=== PATIENT | male | born 1965 | race Caucasian/White ===

== ENCOUNTER 2021-08-09 11:58 | Outpatient (REF) | payer OTHER, SELFPAY | END 2021-08-09 11:59 | disposition home or self-care (01) | LOC: HO.WFDLDS 11:58 | PROVIDERS: Visit Provider Internal Medicine | DX: Z20.822 Contact with and (suspected) exposure to COVID-19 (principal) | CPT/HCPCS: C9803; U0003; U0005 ==

== ENCOUNTER 2025-06-05 07:49 | Outpatient (REF) | payer OTHER, SELFPAY ==
--- OUTSIDE RECORDS SUMMARY | 2016-04-07 | XMS_ITS | Encounter Summary ---
Author Organization [facility] Address [address] [place] [address] Phone Care Team Providers Care Public Health Nutritionist Name Role Phone Unavailable Primary Care Provider Unavailabl e Reason for Visit * MRI/CAT Scan - Closed Specialty Diagnoses / Procedures Referred By Contac t Referred To Contact Procedures MRI Outside Upper Extremity (No Interpretation) Eduardo Carranza Jp, MD [address] [facility] [address] [place] [address] Phone: tel: fax: mailto:[email or web address] Referral ID Status Reason Start Date Expiration Date Visits Re quested Visits Authorized [id number] Closed 07/29/2016 07/29/2017 1 1 Encounter Details Date Type Department Care Team (Late st Contact Info) Description 04/07/2016 Hospital Encounter [facility] [address] [place] [address] Eduardo Carranza Jp, MD [address] [facility] [address] [place] [address] [email or web address] Social History Tobacco Use Types Packs/Day Years [...] (No Interpretation) (04/07/2016 12:00 AM EDT) Narrative [facility] [place] [place] - 07/29/2016 12:00 PM EST This study is for PACS storage only and not for interpretation. us Eduardo Carranza MD IMG OUTSIDE IMAGING W/OUT INTER PRETATION Final Result [facility] [place] documented in this encounter Visit Diagnoses Not on filedocumented in this encounter Additional Source Comments The information contained in this document represents components of the legal health record. It is not the complete legal health record.[facility]
--- NOTE | ~2025-06-05 | XR_ITS ---
EXAMINATION: XR KNEE 3 VIEWS RIGHT HISTORY: M25.561 - Pain in right knee COMPARISON: There are no prior studies available for comparison. FINDINGS: Three views of the right knee are submitted. Osseous mineralization is normal. There is no fracture or dislocation. There is mild narrowing of the medial compartment. The soft tissues are unremarkable. There is no joint effusion. XR/XR knee RT 3V IMPRESSION: Mild narrowing of the medial compartment. Electronically signed by: Yasmani Colin MD 06/05/2025 02:48 PM EDT
--- OUTSIDE RECORDS SUMMARY | 2025-06-05 07:54 | XMS_ITS ---
Author Name [facility] Organization Unknown History of Medication Use Medication Directions Dispensed Refills Start Date End Date Stat us meloxicam (MOBIC) 15 MG tablet Take 1 tablet (15 mg total) by mouth daily. 10/07/2024 active methocarbamol (ROBAXIN) 500 MG tablet Take 1 tablet (500 mg total) by mouth nightly as needed for muscle spasms. 10/07/2024 active testosterone cypionate (DEPO-TESTOSTERONE CYPIONATE) 200 mg/mL injection INJECT 0.5 MILLILITERS (100MG TOTAL) INTO THE SHOULDER, THIGH OR BUTTOCKS ONCE EVERY WEEK 03/25/2022 02/06/2023 active anastrozole (ARIMIDEX) 1 MG tablet Take 1 tablet (1 mg total) by mouth 3 (three) times a week on Monday, Monday, Monday03/25/2022 07/26/2022 aborted lisinopril (PRINIVIL,ZeSTRIL) 10 MG tablet lisinopril 10 mg tablet 11/02/2021 active Syringe, Disposable, 3 ML Misc Use as directed for intramuscular testosterone injection 12/10/2020 11/28/2022 active doxycycline (VIBRAMYCIN) 100 MG capsule Take 100 mg by mouth daily. 10/21/2020 active ozvsph-mkchofysj-dm gnesium sulfates (Suprep Bowel Prep Kit) 17.5-3.13-1.6 GM/177ML Solution solution Take 177 mL by mouth twice daily (every 12 hours). 10/15/2020 active tadalafil (CIALIS) 20 MG tablet 1/2 to 1 tab one hour before activity as directed 05/29/2020 01/05/2023 active benazepril-hydrochl orthiazide (LOTENSIN HCT) 20-12.5 MG per tablet Take 1 tablet by mouth daily. 07/26/2022 aborted nebivolol (BYSTOLIC) 20 MG tablet Take 1 tablet (20 mg total) by mouth daily. active Problems Problem Status Onset Date Problem Type Date of Resoluti on Source Injury of left shoulder, initial encounter active EncounterDiagnosisAct 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
--- OUTSIDE RECORDS SUMMARY | 2025-06-05 07:54 | XMS_ITS | Encounter Summary ---
Author Organization [facility] Address [address] [place] [address] Care Team Providers Care Photoengraving Photographer Name Role Phone Erica Pearson MD Primary Care Provider +1- [phone] Uma Rush MD Primary Care Provider Unavailable Reason for Visit * Reason Comments Medication Refill Encounter Details Date Type Department Care Team (Late st Contact Info) Description 10/20/2020 Refill [facility] [address] [place] [phone] Estuardo Stapleton MD [address] [place] [id number] Benign carcinoid tumor of rectum Social History Tobacco Use Types Packs/Day Years Used Date Smoking Tobacco: Never Smokeless Tobacco: Never Alcohol Use Standard Drinks/Week Comments Yes 0 (1 standard drink = 0.6 oz pur e alcohol) Occ Sex and Gender Information Value Date Recorded Sex Assigned at Not on file Legal Sex Male 1:47 PM EST Gender Identity Not on file Sexual Orientation Not on file COVID-19 Exposure Response Date Recorded In the last month, have you been in contact with someone who was confirmed or suspected to have Coronavirus / COVID-19? No / Unsure 10/19/2020 5:19 PM EDT documented as of this encounter Miscellaneous Notes * Telephone Encounter - Harini Wood MA - 10/22/2020 9:13 AM EDT Can you please refuse this is a duplicate. documented in this encounter Plan of Treatment Not on file documented as of this encounter Visit Diagnoses Diagnosis Benign carcinoid tumor of rectum (HCC) Benign carcinoid tumor of the rectum documented in this encounter Care Teams Photoengraving Photographer Relationship Specialty Start Date End Date Erica Pearson MD [address] [place] [address] PCP - General Internal Medicine 03/30/21 Uma Rush MD [address] [place] [address] PCP - General documented as of this encounter
--- OUTSIDE RECORDS SUMMARY | 2025-06-05 07:54 | XMS_ITS | Encounter Summary ---
Author Organization [facility] Address [address] [place] [address] Care Team Providers Care Strap Cutter Name Role Phone Erica Pearson MD Primary Care Provider +1- [phone] Uma Rush MD Primary Care Provider Unavailable Reason for Visit * Reason Comments Medication Refill Encounter Details Date Type Department Care Team (Late st Contact Info) Description 10/16/2020 Refill [facility] [address] [place] [phone] Estuardo Stapleton MD [address] [place] [id number] Benign carcinoid tumor of rectum Social History [...] encounter Miscellaneous Notes * Telephone Encounter - Estuardo Stapleton MD - 10/20/2020 2:25 PM EDT Prep changed as Suprep not covered. documented in this encounter Plan of Treatment Not on file documented as of this encounter Visit Diagnoses Diagnosis Benign carcinoid tumor of rectum (HCC) Benign carcinoid tumor of the rectum documented in this encounter Care Teams Strap Cutter Relationship Specialty Start Date End Date Erica Pearson MD [address] [place] [address] PCP - General Internal Medicine 03/30/21 Uma Rush MD [address] [place] [address] PCP - General documented as of this encounter
--- OUTSIDE RECORDS SUMMARY | 2025-06-05 07:54 | XMS_ITS | Encounter Summary ---
Author Organization [facility] Address [address] [place] [address] Care Team Providers Care Semiconductor Package Symbol Stamper Name Role Phone Erica Pearson MD Primary Care Provider +1- [phone] Uma Rush MD Primary Care Provider Unavailable Encounter Details Date Type Department Care Team (Late st Contact Info) Description 10/08/2020 Scanned Document [facility] [address] [phone] Alee Harrison, [place] [address] Social History Tobacco Use Types Packs/Day Years [...] Procedure Name Priority Date/Time Associated Diagnosis Comments PATHOLOGY REPORT 10/08/2020 11:4 4 AM EST documented in this encounter Results * (REPORT) PATHOLOGY REPORT (10/08/2020 11:44 AM EST) Alee Harrison DO PATHOLOGY/CYTOLOGY ORDERABLES Final Result documented in this encounter Visit Diagnoses Not on filedocumented in this encounter Care Teams Semiconductor Package Symbol Stamper Relationship Specialty Start Date End Date Erica Pearson MD [address] [place] [address] PCP - General Internal Medicine 03/30/21 Uma Rush MD [address] [place] [address] PCP - General documented as of this encounter
--- OUTSIDE RECORDS SUMMARY | 2025-06-05 07:54 | XMS_ITS | Encounter Summary ---
Author Organization [facility] Address [address] [place] [address] Phone Care Team Providers Care Business Account Leader Name Role Phone Pcp, Not Required Primary Care Provider Unavaila ble Encounter Details Date Type Department Care Team (Late st Contact Info) Description 05/01/2017 Procedure Pass [facility] [address] [place] [address] Social History Tobacco Use Types Packs/Day Years Used Date Smoking Tobacco: Never Smokeless Tobacco: Never Alcohol Use Standard Drinks/Week Comments Yes 8 (1 standard drink = 0.6 oz pur e alcohol) Sex and Gender Information Value Date Recorded Sex Assigned at Not on file Legal Sex Male 10:44 AM EDT Gender Identity Not on file Sexual Orientation Not on file documented as of this encounter Plan of Treatment Not on file documented as of this encounter Visit Diagnoses Not on filedocumented in this encounter Care Teams Business Account Leader Relationship Specialty Start Date End Date Pcp, Not Required [address] [place] [address] PCP - General 05/05/16 documented as of this encounter Additional Source Comments The information contained in this document represents components of the legal health record. It is not the complete legal health record.[facility]
--- OUTSIDE RECORDS SUMMARY | 2025-06-05 07:54 | XMS_ITS | Encounter Summary ---
Author Organization [facility] Address [address] [place] [address] Care Team Providers Care Student Life Dean Name Role Phone Erica Pearson MD Primary Care Provider +1- [phone] Encounter Details Date Type Department Care Team (Late st Contact Info) Description 07/09/2021 Scanned Document [facility] [address] [phone] Alee Harrison DO [address] [place] [address] Social History Tobacco Use Types Packs/Day Years [...] Priority Date/Time Associated Diagnosis Comments PATHOLOGY REPORT 07/09/2021 5:20 PM EST documented in this encounter Results * PATHOLOGY REPORT (07/09/2021 5:20 PM EST) us Alee L Harrison DO PATHOLOGY/CYTOLOGY ORDERABLES Final Result documented in this encounter Visit Diagnoses Not on filedocumented in this encounter Care Teams Student Life Dean Relationship Specialty Start Date End Date Erica Pearson MD [address] [place] [address] PCP - General Internal Medicine 03/30/21 documented as of this encounter
--- OUTSIDE RECORDS SUMMARY | 2025-06-05 07:54 | XMS_ITS | Encounter Summary ---
Author Organization [facility] Address [address] [place] [address] Phone Care Team Providers Care Injection Press Operator Name Role Phone Pcp, Not Required Primary Care Provider Unavaila ble Encounter Details Date Type Department Care Team (Late st Contact Info) Description 04/18/2017 Prep for Surgery [facility] [address] [place] [phone] Ana Vasquez PA [address] [place] [address] Social History Tobacco Use Types Packs/Day Years [...] on file documented as of this encounter H&P Notes * Ana Vasquez PA - 04/18/2017 6:53 AM EDT HPI: Mahesh Calix is a 51 y.o. 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 Pt states hew will wake up and his hand is numb. It wakes him up at night. He recently had an EMG. Social History: Social History Social History ??? Marital status: /Civil Union Spouse name: N/A ??? Number of children: N/A ??? Years of education: N/A Occupational History ??? Not on file. Social History Main Topics ??? Smoking status: Never Smoker ??? Smokeless tobacco: Never Used ??? Alcohol use 4.8 - 6.0 oz/week 8 - 10 Cans of beer per week ??? Drug use: No ??? Sexual activity: Not on file Other Topics Concern ??? Not on file Social History Narrative Family History: No family history on file. PAST MEDICAL HISTORY: There is no problem list on file for this patient. PAST SURGICAL HISTORY: Past Surgical History: Procedure Laterality Date ??? EXPLORATORY LAPAROTOMY ??? FINGER SURGERY Right 17 age MEDICATIONS: Outpatient Prescriptions as of 04/18/2017 Medication ??? CEPHALEXIN (KEFLEX ORAL) ??? nebivolol (BYSTOLIC) 10 MG tablet ??? testosterone (AXIRON) 30 mg/actuation (1.5 mL) SlPm solution No current facility-administered medications on file as of 04/18/2017. ALLERGIES: No Known Allergies REVIEW OF SYSTEMS: CONSTITUTIONAL: No weight loss, fever, chills, weakness or fatigue. HEENT: Eyes: No visual loss, blurred vision, double vision or yellow sclerae. Ears, Nose, Throat: No hearing loss, sneezing, congestion, runny nose or sore throat. SKIN: No rash or itching. CARDIOVASCULAR: No chest pain, chest pressure or chest discomfort. No palpitations or edema. RESPIRATORY: No shortness of breath, cough or sputum. GASTROINTESTINAL: No anorexia, nausea, vomiting or diarrhea. No abdominal pain or blood. GENITOURINARY: Burning on urination. . Last menstrual period, MM/DD/YYYY. NEUROLOGICAL: No headache, dizziness, syncope, paralysis, ataxia, numbness or tingling in the extremities. No change in bowel or bladder control. MUSCULOSKELETAL: See HPI. HEMATOLOGIC: No anemia, bleeding or bruising. LYMPHATICS: No enlarged nodes. No history of splenectomy. PSYCHIATRIC: No history of depression or anxiety. ENDOCRINOLOGIC: No reports of sweating, cold or heat intolerance. No polyuria or polydipsia. ALLERGIES: No history of asthma, hives, eczema or rhinitis. Physical Exam: In general, well-appearing male in no acute distress. Alert and oriented, normal mood and affect. Non-labored breathing. Cervical spine motion is within normal limits. Negative spurling's. General Adult Exam GENERAL APPEARANCE: Well developed, well nourished, alert and cooperative, and appears to be in no acute distress. HEAD: normocephalic. EARS: hearing grossly intact. NOSE: No nasal discharge. NECK: Neck supple, non-tender without lymphadenopathy, masses or thyromegaly. CARDIAC: Normal S1 and S2. No S3, S4 or murmurs. Rhythm is regular. There is no peripheral edema, cyanosis or pallor. Extremities are warm and well perfused. Capillary refill is less than 2 seconds. No carotid bruits. LUNGS: Clear to auscultation and percussion without rales, rhonchi, wheezing or diminished breath sounds. SKIN: Skin normal color, texture and turgor with no lesions or eruptions. Left Upper Extremity: Skin intact, no edema, erythema, ecchymosis No obvious deformity No tenderness to palpation Forearm compartments soft ?and compressible No pain with passive range of motion ? Fires EPL, FPL, EDC, FDP, BRITTNEY SILT ?in axillary, radial, median, ulnar nerve distributions 2+ radial pulse, WWP distally ?? Elbow extension: 0 Elbow flexion: 135 Full supination/Pronation Full ROM of digits ++ Scratch test at the elbow ? STUDIES: ?? EM09/14/2016 Clinical correlation: 1. There is electrical evidence to suggest the presence of a left-sided ulnar neuropathy which localizes to the region of the elbow. There is segmental slowing of the ulnar conduction velocity suggesting a focusof demyelination; this usually correlates with a relatively good prognosis for recovery. There is alsoelectrical evidence for a mild right-sided ulnar sensory neuropathy which is nonlocalizing and of an unclear clinical significance. Neither of these findings are clearly relevant to the patient's chief complaints, andlikely represent incidental findings. 2. There is no electrical evidence to suggest the presence of another proximal focal left upper extremity mononeuropathy, brachial plexopathy or cervical radiculopathy to account for the patient's symptomsat this time. ?? ASSESSMENT: Left ulnar neuropathy ?? PLAN: ?? left insitu ulnar nerve release v. Submuscular transposition documented in this encounter Plan of Treatment Not on file documented as of this encounter Visit Diagnoses Not on filedocumented in this encounter Care Teams Injection Press Operator Relationship Specialty Start Date End Date Pcp, Not Required [address] [place] [address] PCP - General 05/05/16 documented as of this encounter Additional Source Comments The information contained in this document represents components of the legal health record. It is not the complete legal health record.[facility]
--- OUTSIDE RECORDS SUMMARY | 2025-06-05 07:54 | XMS_ITS | Encounter Summary ---
Author Organization [facility] Address [address] [place] [address] Care Team Providers Care General Utility Worker Name Role Phone Erica Pearson MD Primary Care Provider +1- [phone] Encounter Details Date Type Department Care Team (Late st Contact Info) Description 10/07/2024 Scanned Document [address] [place] [phone] Provider, Generic Social History Tobacco Use Types Packs/Day Years [...] on filedocumented in this encounter Care Teams General Utility Worker Relationship Specialty Start Date End Date Erica Pearson MD [address] [place] [address] PCP - General Internal Medicine 03/30/21 documented as of this encounter
--- OUTSIDE RECORDS SUMMARY | 2025-06-05 07:54 | XMS_ITS | Encounter Summary ---
Author Organization [facility] Address [address] [place] [address] Care Team Providers Care Packing Inspector Name Role Phone Erica Pearson MD Primary Care Provider +1- [phone] Uma Rush MD Primary Care Provider Unavailable Encounter Details Date Type Department Care Team (Late st Contact Info) Description 10/31/2020 Lab Requisition [place] [address] [place] [address] Timothy Khan MD [address] [place], [place] [id number] Encounter for laboratory testing for COVID-19 virus Social History Tobacco Use Types Packs/Day Years [...] have Coronavirus / COVID-19? No / Unsure 11/02/2020 3:08 PM EDT documented as of this encounter Plan of Treatment Not on file documented as of this encounter Procedures Procedure Name Priority Date/Time Associated Diagnosis Comments COVID-19 (SARS-COV-2) LARISSA Routine 10/31/2020 8:07 AM EDT Encounter for laboratory testing for COVID-19 virus [ICD-10-CM] documented in this encounter Results * COVID-19 (SARS-CoV-2), LARISSA (In-House) (10/31/2020 8:07 AM EDT) SARS CoV 2 Not Detected Not Detected 10/31/2020 11:42 AM EDT [facility] Comment: Negative results do not preclude SARS-CoV-2 (COVID-19)infection and should not be used as the sole basis for treatment or other patient management decisions. The SARS-CoV-2 (Covid-19) Nucleic Acid Amplification Assay is limited to laboratories certified under the Clinical Laboratory Improvement Amendments of 1988 (CLIA), 42 U.S.C. 263a, to perform high complexity tests. Nucleic acid amplication tests include RT-PCR and TMA. This assay has not been FDA cleared or approved, however, this assay has been authorized by the Food and Drug Administration (FDA) under an Emergency Use Authorization (EUA). Validation was completed and performance characteristics established by [facility] as per the FDA and CLIA requirement for this EUA. The Aptima SARS-CoV-2 assay Letter of Authorization, along with the authorized Fact Sheet for Healthcare Providers, the authorized Fact Sheet for Patients, and authorized labeling are available on the FDA website: https://www.fda.gov/medical-devices/bqlfygtpl-gcdmhwqldu-qtgqbok-devices/emergen - j-auqyizutxcmmkz-pprjimk-devices. Performed at [facility], [place], [place] License [id number] CLIA [id number] Source Nasopharyngeal 10/31/2020 11:42 AM EDT [facility] Comment:Performed at [facility], [place] license No. [id number] CLIA No. [id number] Microbiology Nasopharyngeal swab / Unknown 10/31/2020 8:07 AM EDT 10/31/2020 8:07 AM EDT us Timothy Khan MD MICROBIOLOGY - GENERAL ORDER LISA Final Result [facility] [employer] [address] [place] [address] documented in this encounter Visit Diagnoses Diagnosis Encounter for laboratory testing for COVID-19 virus documented in this encounter Care Teams Packing Inspector Relationship Specialty Start Date End Date Erica Pearson MD [address] [place] [address] PCP - General Internal Medicine 03/30/21 Uma Rush MD [address] [place] [address] PCP - General documented as of this encounter
--- OUTSIDE RECORDS SUMMARY | 2025-06-05 07:54 | XMS_ITS | Encounter Summary ---
Author Organization [facility] Address [address] [place] [address] Care Team Providers Care Mixer Runner Name Role Phone Erica Pearson MD Primary Care Provider +1- [phone] Uma Rush MD Primary Care Provider Unavailable Reason for Visit * Reason Comments Medication Refill anastrozole, Testost erone and syringes Encounter Details Date Type Department Care Team (Late st Contact Info) Description 12/10/2020 Telephone [facility] Urologic Surgery [address] [address] Alfredo Duran MD [address] [id number] Medication Refill (anastrozole, Testosterone and syringes) Social History Tobacco Use Types Packs/Day Years [...] on file documented as of this encounter Miscellaneous Notes * Telephone Encounter - Regla Freire RN - 12/10/2020 2:06 PM EDT Refills for syringe, needles and arimidex. Testosterone pending with MD. Regla Freire 12/10/2020 2:07 PM documented in this encounter Plan of Treatment Not on file documented as of this encounter Visit Diagnoses Not on filedocumented in this encounter Care Teams Mixer Runner Relationship Specialty Start Date End Date Erica Pearson MD [address] [place] [address] PCP - General Internal Medicine 03/30/21 Uma Rush MD [address] [place] [address] PCP - General documented as of this encounter
--- OUTSIDE RECORDS SUMMARY | 2025-06-05 07:54 | XMS_ITS | Encounter Summary ---
Author Organization [facility] Address [address] [place] [address] Phone Care Team Providers Care Welding Process Specialist Name Role Phone Pcp, Not Required Primary Care Provider Unavaila ble Encounter Details Date Type Department Care Team (Late st Contact Info) Description 07/29/2016 Procedure [facility] [address] [place] [address] Social History Tobacco Use Types Packs/Day Years [...] on filedocumented in this encounter Care Teams Welding Process Specialist Relationship Specialty Start Date End Date Pcp, Not Required [address] [place] [address] PCP - General 05/05/16 documented as of this encounter Additional Source Comments The information contained in this document represents components of the legal health record. It is not the complete legal health record.[facility]
--- OUTSIDE RECORDS SUMMARY | 2025-06-05 07:54 | XMS_ITS | Clinical Summary ---
Author Organization [facility] Address [address] [place] [address] Phone Care Team Providers Care Grievance Coordinator Name Role Phone Pcp, Not Required Primary Care Provider Unavaila ble Allergies Active Allergy Reactions Criticality Noted Date Comments Eggplant Vomiting 05/01/2017 Medications nebivolol (BYSTOLIC) 10 MG tablet Take 10 mg by mouth daily. Active testosterone (AXIRON) 30 mg/actuation (1.5 mL) SlPm solution Place 30 mg onto the skin daily. Active CEPHALEXIN (KEFLEX ORAL)Indication s:prn for dentist Take by mouth. Indications: prn for dentist Active HYDROcodone-darnell taminophen (NORCO) 5-325 mg per tablet Take 1 tablet by mouth every 6 (six) hours as needed for pain (specific location in comments). No refill 15 tablet 05/01/2017 Active Active Problems Problem Noted Date Diagnosed Date Ulnar neuropathy at elbow of left upper extremit y 05/01/2017 Social History Tobacco Use Types Packs/Day Years [...] on file Sexual Orientation Not on file Last Filed Vital Signs Vital Sign Reading Time Taken Comments Blood Pressure 144/78 05/01/2017 10:30 AM EDT Pulse 64 05/01/2017 10:30 AM EDT Temperature 36.2 C (97.2 F) 05/01/2017 10:00 AM EDT Respiratory Rate 35 05/01/2017 10:30 AM EDT Oxygen Saturation 94% 05/01/2017 10:30 AM EDT Inhaled Oxygen Concentration - - Weight 117.9 kg (260 lb) 05/01/2017 7:14 AM EDT Height 165.1 cm (5' 5 ) 05/01/2017 7:14 AM EDT Body Mass Index 43.27 05/01/2017 7:14 AM EDT Plan of Treatment Health Maintenance Due Date Last Done Comments LIPID PANEL 1965 DEPRESSION SCREENING 1977 HEPATITIS C SCREENING 1983 HIV ONE-TIME SCREENING (18-6 5 YEARS) 1983 COLOGUARD 2010 COLONOSCOPY 2010 COLORECTAL CANCER SCREENING 2010 FIT TEST 2010 FOBT 2010 SIGMOIDOSCOPY 2010 VIRTUAL COLONOSCOPY 2010 PNEUMOCOCCAL VACCINES (50+ y ears) (1 of 1 - PCV) 2015 ZOSTER VACCINES (1 of 2) 2015 INFLUENZA VACCINE (#1) 2025 COVID-19 VACCINE ( - 2024-2 6 season) 2025 Adult Td,Tdap Booster 12/18/2031 12/17/2021 RSV VACCINE (1 - 1-dose 75+ series) 2040 SMOKING STATUS SCREENING (On ce After 26 Yrs) Completed 04/14/2017 HEPATITIS A VACCINES Aged Out No long er eligible based on patient's age to complete this topic HIB VACCINES Aged Out No longer eligi ble based on patient's age to complete this topic MENINGOCOCCAL VACCINES (ACWY) Aged Out No longer eligible based on patient's age to complete this topic MENINGOCOCCAL VACCINES (B) Aged Out N o longer eligible based on patient's age to complete this topic Medical Devices Not on file Insurance [facility] POS EPO AET HMO POS EPO [employer] [facility] POS EPO AETNA HMO POS EPO AETNA HMO POS EPO AETNA HMO POS EPO AETNA HMO POS EPO AETNA HMO POS EPO AETNA HMO POS EPO Care Teams Grievance Coordinator Relationship Specialty Start Date End Date Pcp, Not Required [address] [place] [address] PCP - General 05/05/16 Additional Source Comments The information contained in this document represents components of the legal health record. It is not the complete legal health record.[facility]
--- OUTSIDE RECORDS SUMMARY | 2025-06-05 07:54 | XMS_ITS | Clinical Summary ---
Author Organization [facility] Address [address] [place] [address] Care Team Providers Care Drafting Detailer Name Role Phone Erica Pearson MD Primary Care Provider +1- [phone] Allergies No known active allergies Medications nebivolol (BYSTOLIC) 20 MG tablet Take 1 tablet (20 mg total) by mouth daily. Active sodium-potassium -magnesium sulfates (Suprep Bowel Prep Kit) 17.5-3.13-1.6 GM/177ML Solution solutionIndicati ons:Benign carcinoid tumor of rectum (HCC) Take 177 mL by mouth twice daily (every 12 hours). 177 mL 10/16/19 21 Active doxycycline (VIBRAMYCIN) 100 MG capsule Take 1 capsule (100 mg total) by mouth daily. 10/22/19 21 Active NEEDLE, DISP, 23 G (BD Disp Needle) 23G X 1 MiscIndications: Male hypogonadism USE DIRECTED FOR INJECTION OF INTRAMUSCULAR TESTOSTERONE MEDICATION 20 each 1 06/02/20 22 Active lisinopril (PRINIVIL,ZeSTRI L) 10 MG tablet lisinopril 10 mg tablet 11/03/19 22 Active NEEDLE, DISP, 18 G (MONOJECT HYPO 18GX1 ) 18G X 1 MiscIndications: Male hypogonadism Use as directed for drawing up intramuscular testosterone medication 25 each 1 11/22/19 23 Active Syringe, Disposable, 3 ML MiscIndications: Male hypogonadism Use as directed for intramuscular testosterone injection 25 each 1 11/29/19 23 Active tadalafil (CIALIS) 20 MG tabletIndication s:Erectile dysfunction, unspecified erectile dysfunction type 1/2 to 1 tab one hour before activity as directed 20 tablet 5 01/06/20 23 Active testosterone cypionate (DEPO-TESTOSTERO NE CYPIONATE) 200 mg/mL injectionIndicat ions:Male hypogonadism INJECT 0.5 MILLILITERS (100MG TOTAL) INTO THE SHOULDER, THIGH OR BUTTOCKS ONCE EVERY WEEK 10 mL 02/07/20 23 Active meloxicam (MOBIC) 15 MG tabletIndication s:Injury of left shoulder, initial encounter Take 1 tablet (15 mg total) by mouth daily. 30 tablet 10/08/19 25 Active methocarbamol (ROBAXIN) 500 MG tabletIndication s:Injury of left shoulder, initial encounter Take 1 tablet (500 mg total) by mouth nightly as needed for muscle spasms. 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 Male hypogonadism 08/21/2018 Family History Medical History Relation Name Comments Heart attack Father Hypertension Father Alzheimer's disease Mother Hypertension Mother Cancer Neg Hx Relation Name Status Comments Father Maternal Grandfather Maternal Grandmother Mother Paternal Grandfather Paternal Grandmother Social History Tobacco Use Types Packs/Day Years Used Date Smoking Tobacco: Never Smokeless Tobacco: Never Tobacco Cessation:Counseling Given: Not Answered Alcohol Use Standard Drinks/Week Comments Yes 0 (1 standard drink = 0.6 oz pur e alcohol) Occ Sex and Gender Information Value Date Recorded Sex Assigned at Not on file Legal Sex Male 1:47 PM EST Gender Identity Not on file Sexual Orientation Not on file Last Filed Vital Signs Vital Sign Reading Time Taken Comments Blood Pressure 163/80 10/07/2024 10:48 AM EST Pulse 66 10/07/2024 10:48 AM EST Temperature 36.6 C (97.9 F) 10/07/2024 10:48 AM EST Respiratory Rate 18 10/07/2024 10:48 AM EST Oxygen Saturation 97% 10/07/2024 10:48 AM EST Inhaled Oxygen Concentration - - Weight 117 kg (258 lb) 10/07/2024 10:48 AM EST Height 167.6 cm (5' 6 ) 10/07/2024 10:48 AM EST Body Mass Index 41.64 10/07/2024 10:48 AM EST Plan of Treatment Health Maintenance Due Date Last Done Comments Hepatitis C Virus Screening 1965 HIV Screening 1978 DTaP/Tdap/Td Vaccines (1 - Tdap) 1984 Hepatitis B Vaccines (1 of 3 - 19+ 3-dose series) 10/1984 Colonoscopy 2010 Pneumococcal Vaccines 50+ (1 of 1 - PCV) 2015 RSV Vaccine 50 years and old er and Patients (1 - Risk 50-74 years 1-dose series) 2015 Zoster (Shingles) Vaccine (1 of 2) 2015 Influenza Vaccine 03/07/2025 COVID-19 Vaccine ( season) 2025 Insurance AET HMO/POS AET HMO/POS AETNA HMO/POS Care Teams Drafting Detailer Relationship Specialty Start Date End Date Erica Pearson MD [address] [place], [place] [id number] PCP - General Internal Medicine 03/30/21
--- OUTSIDE RECORDS SUMMARY | 2025-06-05 07:54 | XMS_ITS | Encounter Summary ---
Author Organization [facility] Address [address] [place] [address] Care Team Providers Care Outside Installation Machinist Name Role Phone Erica Pearson MD Primary Care Provider +1- [phone] Uma Rush MD Primary Care Provider Unavailable Encounter Details Date Type Department Care Team (Late st Contact Info) Description 05/16/2019 Scanned Document [facility] Urologic Surgery [place] [address] [facility] [address] [place] [id number] Uma Rush MD Social History Tobacco Use Types Packs/Day Years [...] on filedocumented in this encounter Care Teams Outside Installation Machinist Relationship Specialty Start Date End Date Erica Pearson MD [address] [place] [address] PCP - General Internal Medicine 03/30/21 Uma Rush MD [address] [place] [address] PCP - General documented as of this encounter
--- OUTSIDE RECORDS SUMMARY | 2025-06-05 07:54 | XMS_ITS | Encounter Summary ---
Author Organization [facility] Address [address] [place] [address] Care Team Providers Care Software Engineer Developer Name Role Phone Erica Pearson MD Primary Care Provider +1- [phone] Uma Rush MD Primary Care Provider Unavailable Encounter Details Date Type Department Care Team (Late st Contact Info) Description 05/16/2019 Scanned Document [facility] Urologic Surgery [place] [address] [facility] [address] [place] [phone] Uma Rush MD Social History Tobacco Use [...] on filedocumented in this encounter Care Teams Software Engineer Developer Relationship Specialty Start Date End Date Erica Pearson MD [address] [place] [address] PCP - General Internal Medicine 03/30/21 Uma Rush MD [address] [place] [address] PCP - General documented as of this encounter
--- OUTSIDE RECORDS SUMMARY | 2025-06-05 07:54 | XMS_ITS | Encounter Summary ---
Author Organization [facility] Address [address] [place] [address] Care Team Providers Care Engine Dynamometer Tester Name Role Phone rEica Pearson MD Primary Care Provider +1- [phone] Reason for Visit * Reason Comments Medication Refill Encounter Details Date Type Department Care Team (Late st Contact Info) Description 05/03/2023 Refill [facility] Urologic Surgery [address] [place] [address] Lesia Smith, CATHOLIC PRIEST [address] [facility] [address] [place] [address] Male hypogonadism Social History Tobacco Use Types Packs/Day Years [...] as of this encounter Visit Diagnoses Diagnosis Male hypogonadism Other testicular hypofunction documented in this encounter Care Teams Engine Dynamometer Tester Relationship Specialty Start Date End Date Erica Pearson MD [address] [place] [address] PCP - General Internal Medicine 03/30/21 documented as of this encounter
--- OUTSIDE RECORDS SUMMARY | 2025-06-05 07:54 | XMS_ITS | Encounter Summary ---
Author Organization [facility] Address [address] [place] [address] Care Team Providers Care Trade Clerk Name Role Phone Erica Pearson MD Primary Care Provider +1- [phone] Encounter Details Date Type Department Care Team (Late st Contact Info) Description 10/07/2024 Scanned Document [address] [place] [phone] Provider, Generic Social History Tobacco Use Types [...] on filedocumented in this encounter Care Teams Trade Clerk Relationship Specialty Start Date End Date Erica Pearson MD [address] [place] [address] PCP - General Internal Medicine 03/30/21 documented as of this encounter
--- OUTSIDE RECORDS SUMMARY | 2025-06-05 07:54 | XMS_ITS | Clinical Summary ---
Author Organization [facility] Address [address] [place] [address] Care Team Providers Care Director Digital Catalogue Name Role Phone Unknown, Primary Care Provider Unavailabl e Social History Tobacco Use Types Packs/Day Years Used Date Smoking Tobacco: Never Assessed Sex and Gender Information Value Date Recorded Sex Assigned at Not on file Gender Identity Not on file Sexual Orientation Not on file Job Start Date Occupation Industry Not on file Not on file Not on file Plan of Treatment Health Maintenance Due Date Last Done Comments Hepatitis B Vaccines (1 of 3 - 3-dose series) 1965 Hepatitis C Screening 1965 COVID-19 Vaccine (#1) 03/09/1966 Depression Screening 1977 Preventative Health Evaluation 1983 DTap / Tdap / Td (1 - Tdap) 1984 Colon Cancer Screening (Colonoscopy) 2010 Shingrix-Zoster Vaccine (1 of 2) 2015 Influenza Vaccine (#1) 2025 Pneumococcal Vaccine Aged Out No long er eligible based on patient's age to complete this topic RSV Ped < 20 months Aged Out No longe r eligible based on patient's age to complete this topic Care Teams Director Digital Catalogue Relationship Specialty Start Date End Date Unknown, PCP - General 02/02/24
== END 2025-06-05 07:50 | disposition home or self-care (01) ==
LOC: HO.HOSX 07:49
PROVIDERS: Visit Provider Orthopaedic Surgery
DX: S83.241A Other tear of medial meniscus, current injury, right knee, initial encounter (principal); X58.XXXA Exposure to other specified factors, initial encounter
CPT/HCPCS: 73562

== ENCOUNTER 2025-06-05 13:25 | Outpatient (AMB) | payer OTHER, SELFPAY ==
--- NOTE | 2025-06-05 13:41 | A.OFFVIS_ITS ---
Intake Visit Reasons: Right knee pain and giving way Intake Note: Mahesh is a 59 year old male who presents with complaints of progressively worsening right knee pain and giving way. The patient states that his symptoms have gotten worse over the last year in spite of continued non operative treatments. He was given a cortisone injection into his right knee by another provider several months ago which gave him minimal relief. Has failed the last 6 weeks of conservative treatment which has included Tylenol, meloxicam, prednisone, a home exercise program and physical therapy exercises. Most of the pain is along the medial aspect of his knee. He states that his right knee gives out several times per day. Allergies No Known Allergies Allergy (Verified 06/05/25 13:50) Medication List - Last Reconciled 06/05/25 by Jonny Contreras MD meloxicam 15 mg PO DAILY methylprednisolone mg PO nebivolol mg PO PFSH Social History Alcohol intake: current Alcohol intake frequency: a few times a month Patient Tobacco Use Status: Never used Tobacco Current occupational status: employed Current occupation: [employer] Physical Exam Const Other: Well-nourished well-developed very friendly male awake alert and oriented x3 in no acute distress Extrem Other: Right knee examination shows a minimal effusion, mild crepitus with range of mo tion, tenderness along his medial joint line, positive Karan's test, no instability Results Reviewed Results Reviewed: Standing full weight-bearing x-rays of the patient's right knee show mild diffuse joint space narrowing, no acute bony abnormalities MRI of the patient's right knee shows mild to moderate diffuse degenerative changes as well as a tear of the medial meniscus Assessment & Plan Assessment & Plan (1) Tear of medial meniscus of right knee: Code(s): S83.241A - Other tear of medial meniscus, current injury, right knee, initial encounter Category: Medical Plan Mr. Calix presents with progressively worsening right knee pain and mechanical symptoms due to early degenerative joint disease as well as a tear of his medial meniscus. I had a lengthy discussion with the patient regarding the treatment options. At this point he has failed continued non operative treatments. The risks and benefits of right knee arthroscopic surgery were discussed at length with the patient. The patient wishes to proceed with surgery. Surgery will involve right knee arthroscopic partial medial meniscectomy. The patient does understand that he may not get 100% relief of his symptoms depending on the severity of his degenerative changes. He will be scheduled for next available date. He will follow up as instructed. Feel free to call me at any time should questions regarding his orthopedic management arise. Thank you very much for asking me to see this very friendly gentleman. I spent 21 minutes in reviewing the patient's records and imaging studies, seeing the patient and documenting in the medical record. Orders: Orders XR knee RT 3V Today M25.561 - Pain in right knee Coding Level of Care Code New Pt Level 3 (05381) Complex EM visit Add On G2211 Diagnoses Tear of medial meniscus of right knee S83.241A
== END 2025-06-05 14:05 | disposition home or self-care (01) ==
PROVIDERS: PCP Internal Medicine; Visit Provider Orthopaedic Surgery
DX: S83.241A Other tear of medial meniscus, current injury, right knee, initial encounter (principal)
CPT/HCPCS: 99204; G2211

== ENCOUNTER → 2025-06-05 13:32 | Outpatient (BNV) | payer OTHER, SELFPAY | PROVIDERS: Visit Provider Radiology Diagnostic Radiology | DX: M17.11 Unilateral primary osteoarthritis, right knee (principal) | CPT/HCPCS: 73562 ==

== ENCOUNTER 2025-07-29 09:31 | Outpatient (AMB) | payer OTHER, SELFPAY ==
--- OUTSIDE RECORDS SUMMARY | 2016-04-06 23:00 | XMS_ITS | Encounter Summary ---
Author Organization [facility] Address [address] [place] [address] Phone Care Team Providers Care Community Resource Officer Name Role Phone Unavailable Primary Care Provider Unavailabl e Reason for Visit * MRI/CAT Scan - Closed Specialty Diagnoses / Procedures Referred By Contac t Referred To Contact Procedures MRI Outside Upper Extremity (No Interpretation) Eduardo Carranza Jp, MD [address] [facility] [address] [place] [address] Phone: tel: fax: mailto:[email or web address] Referral ID Status Reason Start Date Expiration Date Visits Re quested Visits Authorized [id number] Closed 07/29/2016 07/29/2017 1 1 Encounter Details Date Type Department Care Team (Late st Contact Info) Description 04/07/2016 Hospital Encounter [facility] [address] [place] [address] Eduardo Carranza Jp, MD [address] [facility] [address] [place] [address] [email or web address] Social History Tobacco Use Types Packs/Day Years Used Date Smoking Tobacco: Never Smokeless Tobacco: Never Alcohol Use Standard Drinks/Week Comments Yes 8 (1 standard drink = 0.6 oz pur e alcohol) Education Answer Date Recorded Are you interested in more education? Not on marly e 12/02/2022 Are you concerned about learning? Not on file 12/02/2022 No 12/02/2022 No 12/02/2022 Digital Access Answer Date Recorded No 01/02/2023 No 01/02/2023 No 01/02/2023 Reliable internet access at home? Not on file 01/02/2023 Device with a working camera? Not on file Sex and Gender Information Value Date Recorded Sex Assigned at Not on file Legal Sex Male 10:44 AM EDT Gender Identity Not on file Sexual Orientation Not on file documented as of this encounter Plan of Treatment Not on file documented as of this encounter Procedures Procedure Name Priority Date/Time Associated Diagnosis Comments MRI UPPER EXTREMITY OUTSIDE (NO INTERPRETATION) Routine 04/07/2016 12:00 AM EDT documented in this encounter Results * MRI Outside Upper Extremity (No Interpretation) (04/07/2016 12:00 AM EDT) Narrative [facility] IMG INTERFACES - 07/29/2016 12:00 PM EST This study is for PACS storage only and not for interpretation. us Eduardo Carranza MD IMG OUTSIDE IMAGING W/OUT INTER PRETATION Final Result [facility] IMG INTERFACES documented in this encounter Visit Diagnoses Not on filedocumented in this encounter Additional Source Comments The information contained in this document represents components of the legal health record. It is not the complete legal health record.[facility]
--- NOTE | 2025-07-29 09:45 | A.OFFVIS_ITS ---
Intake Visit Reasons: Right knee pain and giving way Intake Note: Mahesh is a 59 year old male who presents with complaints of progressively worsening right knee pain and giving way. The patient states that his symptoms have gotten worse over the last year in spite of continued non operative treatments. He was given a cortisone injection into his right knee by another provider several months ago which gave him minimal relief. Has failed the last 6 weeks of conservative treatment which has included Tylenol, meloxicam, prednisone, a home exercise program and physical therapy exercises. Most of the pain is along the medial aspect of his knee. He states that his right knee gives out several times per day. Allergies No Known Allergies Allergy (Verified 06/05/25 13:50) Medication List - Last Reconciled 07/29/25 by Jonny Contreras MD amlodipine 5 mg PO DAILY amoxicillin 2,000 mg PO ONCE atorvastatin 40 mg PO DAILY carvedilol 6.25 mg PO Q12H losartan 50 mg PO DAILY meloxicam 15 mg PO DAILY PRN methylprednisolone 4 mg PO DAILY PRN testosterone cypionate 100 mg IM QWEEK PFSH Medical History Elevated cholesterol Umbilical hernia Obesity Sleep apnea Murmur Post-traumatic osteoarthritis HTN (hypertension) Surgical History H/O colonoscopy History of incision and drainage Hx of elbow surgery Hx of meniscectomy of right knee Social History Are you a primary healthcare applications analyst to a significant other at home: No Do you presently have visiting nurse or other home services: No Alcohol intake: current Alcohol intake frequency: a few times a month Patient Tobacco Use Status: Never used Tobacco Current occupational status: employed Current occupation: [employer] Physical Exam Extrem Other: Right knee examination shows a minimal effusion, mild crepitus with range of motion, tenderness along his medial joint line, positive Karan's test, no instability Results Reviewed Results Reviewed: Standing full weight-bearing x-rays of the patient's right knee show mild diffuse joint space narrowing, no acute bony abnormalities MRI of the patient's right knee shows mild diffuse degenerative changes as well as a tear of the medial meniscus Assessment & Plan Assessment & Plan (1) Tear of medial meniscus of right knee: Code(s): S83.241A - Other tear of medial meniscus, current injury, right knee, initial encounter Category: Medical Plan Mr. Calix presents with right knee pain and mechanical symptoms due to a medial meniscus tear. I had a lengthy discussion with the patient regarding the treatment options. At this point he has failed continued non operative t reatments. The risks and benefits of right knee arthroscopic surgery were discussed at length with the patient. The patient wishes to proceed with surgery. Surgery will involve right knee arthroscopic partial medial meniscectomy. The patient does understand that he may not get 100% relief of his symptoms depending on the severity of his degenerative changes. The patient will be given a prescription for pain medicine at the time of his surgery. He will follow up as instructed. Feel free to call me at any time should questions regarding his orthopedic management arise. I spent 21 minutes in reviewing the patient's records and imaging studies, seeing the patient and documenting in the medical record. Coding Level of Care Code Est Pt Level 3 (26241) Add On Problem Visit Only Diagnoses Tear of medial meniscus of right knee S83.241A
--- OUTSIDE RECORDS SUMMARY | 2025-07-29 10:18 | XMS_ITS | Encounter Summary ---
Author Organization [facility] Address [address] [place] [address] Care Team Providers Care Ms Sql Dba Name Role Phone Erica Pearson MD Primary Care Provider +1- [phone] Uma Rush MD Primary Care Provider Unavailable Encounter Details Date Type Department Care Team (Late st Contact Info) Description 05/16/2019 Scanned Document [facility] Urologic Surgery [place] [address] [facility] [address] [place] [address] Uma Rush MD Social History Tobacco Use [...] on filedocumented in this encounter Care Teams Ms Sql Dba Relationship Specialty Start Date End Date Erica Pearson MD [address] [place] [address] PCP - General Internal Medicine 03/30/21 Uma Rush MD [address] [place] [address] PCP - General documented as of this encounter
--- OUTSIDE RECORDS SUMMARY | 2025-07-29 10:18 | XMS_ITS | Clinical Summary ---
Author Organization [facility] Address [address] [place] [address] Phone Care Team Providers Care Director Of Cloud Services Name Role Phone Pcp, Not Required Primary [...] topic Medical Devices Not on file Insurance [facility] EPO AET HMO POS EPO [facility] POS EPO AETNA HMO POS EPO AETNA HMO POS EPO AETNA HMO POS EPO AETNA HMO POS EPO AET HMO POS EPO AETNA HMO POS EPO Care Teams Director Of Cloud Services Relationship Specialty Start Date End Date Pcp, Not Required PCP - General 05/05/16 Additional Source Comments The information contained in this document represents components of the legal health record. It is not the complete legal health record.[facility]
--- OUTSIDE RECORDS SUMMARY | 2025-07-29 10:18 | XMS_ITS | Encounter Summary ---
Author Organization [facility] Address [address] [place] [address] Care Team Providers Care Clinical Operations Leader Name Role Phone Erica Pearson MD Primary Care Provider +1- [phone] Uma Rush MD Primary Care Provider Unavailable Encounter Details Date Type Department Care Team (Late st Contact Info) Description 05/16/2019 Scanned Document [facility] Urologic Surgery [place] [address] [place] [phone] Uma Rush MD Social History Tobacco Use [...] on filedocumented in this encounter Care Teams Clinical Operations Leader Relationship Specialty Start Date End Date Erica Pearson MD [address] [place] [address] PCP - General Internal Medicine 03/30/21 Uma Rush MD [address] [place] [address] PCP - General documented as of this encounter
--- OUTSIDE RECORDS SUMMARY | 2025-07-29 10:18 | XMS_ITS | Encounter Summary ---
Author Organization [facility] Address [address] [place] [address] Care Team Providers Care Sharepoint Architect Name Role Phone Erica Pearson MD Primary Care Provider +1- [phone] Uma Rush MD Primary Care Provider Unavailable Encounter Details Date Type Department Care Team (Late st Contact Info) Description 10/08/2020 Scanned Document [facility] [address] [phone] Alee Harrison, [place] [address] Social History Tobacco Use Types Packs/Day Years [...] on filedocumented in this encounter Care Teams Sharepoint Architect Relationship Specialty Start Date End Date Erica Pearson MD [address] [place] [address] PCP - General Internal Medicine 03/30/21 Uma Rush MD [address] [place] [address] PCP - General documented as of this encounter
--- OUTSIDE RECORDS SUMMARY | 2025-07-29 10:18 | XMS_ITS | Encounter Summary ---
Author Organization [facility] Address [address] [place] [address] Phone Care Team Providers Care Hospital Ward Clerk Name Role Phone Pcp, Not Required Primary Care Provider Unavaila ble Encounter Details Date Type Department Care Team (Late st Contact Info) Description 04/18/2017 Prep for Surgery [facility] [address] [place] [address] Ana Vasquez PA 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 It is not the complete legal health record.[facility]
--- OUTSIDE RECORDS SUMMARY | 2025-07-29 10:18 | XMS_ITS | Encounter Summary ---
Author Organization [facility] Address [address] [place] [address] Care Team Providers Care School Director Name Role Phone Erica Pearson MD Primary Care Provider +1- [phone] Encounter Details Date Type Department Care Team (Late st Contact Info) Description 10/07/2024 Scanned Document [address] [place] [phone] Provider, Generic Social History Tobacco Use Types [...] on filedocumented in this encounter Care Teams School Director Relationship Specialty Start Date End Date Erica Pearson MD [address] [place] [address] PCP - General Internal Medicine 03/30/21 documented as of this encounter
--- OUTSIDE RECORDS SUMMARY | 2025-07-29 10:18 | XMS_ITS | Encounter Summary ---
Author Organization [facility] Address [address] [place] [address] Phone Care Team Providers Care Cellular Tower Climber Name Role Phone Pcp, Not Required Primary Care Provider Unavaila ble Encounter Details Date Type Department Care Team (Late st Contact Info) Description 05/01/2017 Procedure Pass [facility] [address] [place] [address] Social History Tobacco Use Types Packs/Day Years [...] on filedocumented in this encounter Care Teams Cellular Tower Climber Relationship Specialty Start Date End Date Pcp, Not Required PCP - General 05/05/16 documented as of this encounter Additional Source Comments The information contained in this document represents components of the legal health record. It is not the complete legal health record.[facility]
--- OUTSIDE RECORDS SUMMARY | 2025-07-29 10:18 | XMS_ITS | Encounter Summary ---
Author Organization [facility] Address [address] [place] [address] Phone Care Team Providers Care Newspaper Publisher Name Role Phone Pcp, Not Required Primary Care Provider Unavaila ble Encounter Details Date Type Department Care Team (Late st Contact Info) Description 07/29/2016 Procedure Pass [facility] [address] [place] [address] Social History Tobacco Use Types Packs/Day Years [...] on filedocumented in this encounter Care Teams Newspaper Publisher Relationship Specialty Start Date End Date Pcp, Not Required PCP - General 05/05/16 documented as of this encounter Additional Source Comments The information contained in this document represents components of the legal health record. It is not the complete legal health record.[facility]
--- OUTSIDE RECORDS SUMMARY | 2025-07-29 10:18 | XMS_ITS | Clinical Summary ---
Author Organization [facility] Address [address] [place] [address] Care Team Providers Care Patrol Police Sergeant Name Role Phone Erica Pearson MD Primary Care Provider +1- [phone] Allergies No known active allergies Medications nebivolol [...] 2) 2015 Influenza Vaccine 03/07/2025 COVID-19 Vaccine (2024- season) 2025 Insurance AET HMO/POS AET HMO/POS [employer]ET[employer] HMO/POS Care Teams Patrol Police Sergeant Relationship Specialty Start Date End Date Erica Pearson MD [address] [place], [place] [id number] PCP - General Internal Medicine 03/30/21
--- OUTSIDE RECORDS SUMMARY | 2025-07-29 10:18 | XMS_ITS | Encounter Summary ---
Author Organization [facility] Address [address] [place] [address] Care Team Providers Care Immigration Consultant Name Role Phone Erica Pearson MD Primary Care Provider +1- [phone] Encounter Details Date Type Department Care Team (Late st Contact Info) Description 07/09/2021 Scanned Document [facility] [address] [phone] Alee Harrison DO [address] [place] [address] Social History Tobacco Use Types Packs/Day Years [...] on filedocumented in this encounter Care Teams Immigration Consultant Relationship Specialty Start Date End Date Erica Pearson MD [address] [place] [address] PCP - General Internal Medicine 03/30/21 documented as of this encounter
--- OUTSIDE RECORDS SUMMARY | 2025-07-29 10:18 | XMS_ITS | Encounter Summary ---
Author Organization [facility] Address [address] [place] [address] Care Team Providers Care Rn Prior Authorization Name Role Phone Erica Pearson MD Primary Care Provider +1- [phone] Encounter Details Date Type Department Care Team (Late st Contact Info) Description 10/07/2024 Scanned Document [address] [place] [phone] Provider, Generic Social History Tobacco Use Types [...] on filedocumented in this encounter Care Teams Rn Prior Authorization Relationship Specialty Start Date End Date rEica Pearson MD [address] [place] [address] PCP - General Internal Medicine 03/30/21 documented as of this encounter
--- OUTSIDE RECORDS SUMMARY | 2025-07-29 10:19 | XMS_ITS | Clinical Summary ---
Author Organization [facility] Prior to 01/04/25 Address [address] [place] [address] Care Team Providers Care Car Loader Name Role Phone Unknown, Primary Care Provider Unavailjaciel e Social History Tobacco Use Types Packs/Day [...] age to complete this topic Care Teams Car Loader Relationship Specialty Start Date End Date Unknown, PCP - General 02/02/24
== END 2025-07-29 10:08 | disposition home or self-care (01) ==
LOC: HO.HOS 09:32
PROVIDERS: Visit Provider Orthopaedic Surgery
DX: S83.241A Other tear of medial meniscus, current injury, right knee, initial encounter (principal)
CPT/HCPCS: 99214; G2211